=== PATIENT | male | born 1955 | race African-American/Black ===

== ENCOUNTER 2018-05-02 11:02 | Inpatient (IN) | payer MEDICARE, MEDICAID ==
[~2018-05-02] VITALS: Ht 172.7 cm; Wt 87.5 kg
[~2018-05-02 11:02] MED LIST: INSLIS SUBCUT; METF10004 PO
[2018-05-02] MEDS ORDERED: ACETAMINOPHEN 325MG TABLET PO STA (11:14)
[2018-05-02] MEDS ORDERED: SODIUM CHLORIDE 0.9% 1000ML BAG (SEPSIS BOLUS) IV ONE (11:15)
[2018-05-02 11:52] LABS: HEMATOCRIT. 36.3 % (42.0-52.0); HEMOGLOBIN. 12.5 g/dL (14.0-18.0); MEAN CORPUSCULAR HEMOGLOBIN 30.3 pg (28.0-32.0); MEAN PLATELET VOLUME 10.8 fl (7.4-10.4); PLATELET 437 x1000/uL (130-400); RED BLOOD CELL COUNT 4.12 mill/uL (4.7-6.1); RED CELL DISTRIBUTION WIDTH 16.2 % (11.6-14.6)
[2018-05-02 12:09] LABS: CLARITY URINE CLOUDY (CLEAR); COLOR URINE YELLOW (YELLOW); KETONES URINE 4+ (NEGATIVE); LEUKOCYTE ESTERASE URINE NEGATIVE (NEGATIVE); NITRITE URINE NEGATIVE (NEGATIVE); OCCULT BLOOD URINE 2+ (NEGATIVE); PROTEIN URINE 2+ (NEGATIVE); SPECIFIC GRAVITY URINE 1.044 (1.005-1.030)
[2018-05-02 12:47] LABS: CHLORIDE 102 mEq/L (98-107)
[2018-05-02 12:53] LABS: PLATELET ESTIMATE INCREASED
[2018-05-02] MEDS ORDERED: VANCOMYCIN 1 G PREMIX 200 ML IV ONE (13:15)
[2018-05-02] MEDS ORDERED: PIPERACILLIN/TAZ 3.375G PREMIX 50 ML IV ONE (13:15)
[2018-05-02] MEDS ORDERED: ASPIRIN 81MG TABLET PO ONE (13:15)
[2018-05-02] MEDS ORDERED: DEXTROSE 50% WATER 50ML SYRINGE IV PRN (14:15)
[2018-05-02] MEDS ORDERED: CLONIDINE 0.1MG TABLET PO PRN (14:30)
[2018-05-02] MEDS ORDERED: INSULIN GLARGINE UD 100 UNITS/ML SYR SUBCUT NR (16:00)
[2018-05-02] MEDS: BLOOD SUGAR DIAGNOSTIC STRIP TEST SCH ×3 (17:00→20:39)
[2018-05-02 17:36] VITALS: BP 143/65
[2018-05-02] MEDS: INSULIN LISPRO 100 UNITS/ML SUBCUT SCH ×2 (18:41→20:39)
[2018-05-02 20:00] VITALS: BP 145/74
[2018-05-02] MEDS ORDERED: LEVOFLOXACIN 500MG PREMIX 100 ML IV SCH (20:00)
[2018-05-02] MEDS: AMLODIPINE 5MG TABLET PO SCH (20:38)
[2018-05-02] MEDS: ONDANSETRON HCL 4MG/2ML VIAL IV PRN (22:55)
[2018-05-03] VITALS (7 sets, daily range): BP systolic 134–189; BP diastolic 66–87
[2018-05-03] MEDS: ONDANSETRON HCL 4MG/2ML VIAL IV PRN (05:05)
[2018-05-03] MEDS: BLOOD SUGAR DIAGNOSTIC STRIP TEST SCH ×4 (06:56→20:28)
[2018-05-03 07:05] LABS: HEMATOCRIT. 35.9 % (42.0-52.0); HEMOGLOBIN. 11.9 g/dL (14.0-18.0); MEAN CORPUSCULAR HEMOGLOBIN 29.6 pg (28.0-32.0); MEAN CORPUSCULAR VOLUME 89.3 fL (80.0-94.0); MEAN PLATELET VOLUME 10.3 fl (7.4-10.4); PLATELET 229 x1000/uL (130-400); RED BLOOD CELL COUNT 4.02 mill/uL (4.7-6.1)
[2018-05-03] MEDS: AMLODIPINE 5MG TABLET PO SCH ×2 (08:11→21:35)
[2018-05-03] MEDS: INSULIN LISPRO 100 UNITS/ML SUBCUT SCH ×6 (08:12→21:36)
[2018-05-03] MEDS: INSULIN GLARGINE UD 100 UNITS/ML SYR SUBCUT SCH ×2 (10:55→21:36)
[2018-05-03] MEDS: ACETAMINOPHEN 325MG TABLET PO PRN ×2 (15:22→21:40)
[2018-05-03 17:11] LABS: PLATELET ESTIMATE NORMAL
[2018-05-03] MEDS: LEVOFLOXACIN 500MG PREMIX 100 ML IV SCH (23:00)
[2018-05-03 23:23] LABS: *AMPHETAMINES SCREEN URINE NEGATIVE (NEGATIVE); *BARBITURATES SCREEN URINE NEGATIVE (NEGATIVE); *BENZODIAZEPINES SCREEN URINE NEGATIVE (NEGATIVE); *COCAINE SCREEN URINE NEGATIVE (NEGATIVE); METHADONE URINE SCREEN NEGATIVE (NEGATIVE); OPIATES URINE SCREEN NEGATIVE (NEGATIVE)
[2018-05-03 23:24] LABS: CANNABINOID URINE SCREEN NEGATIVE (NEGATIVE); PHENCYCLIDINE URINE SCREEN NEGATIVE (NEGATIVE)
[2018-05-04] VITALS: BP 125/64
[2018-05-04 04:00] VITALS: BP 128/62
[2018-05-04] MEDS: BLOOD SUGAR DIAGNOSTIC STRIP TEST SCH ×4 (05:48→20:58)
[2018-05-04 07:25] LABS: CHLORIDE 97 mEq/L (98-107)
[2018-05-04 07:35] LABS: BASOPHILS % 0.6 % (0.0-2.0); EOSINOPHILS % 0.2 % (0.0-5.0); HEMATOCRIT. 35.3 % (42.0-52.0); HEMOGLOBIN. 11.9 g/dL (14.0-18.0); LYMPHOCYTES % 7.7 % (20.0-50.0); MEAN CORPUSCULAR HEMOGLOBIN 29.6 pg (28.0-32.0); MEAN CORPUSCULAR VOLUME 88.1 fL (80.0-94.0); MEAN PLATELET VOLUME 10.5 fl (7.4-10.4); MONOCYTES % 9.1 % (2.0-8.0); NEUTROPHILS % 82.4 % (40.0-76.0); PLATELET 187 x1000/uL (130-400); RED BLOOD CELL COUNT 4.01 mill/uL (4.7-6.1); RED CELL DISTRIBUTION WIDTH 15.8 % (11.6-14.6)
[2018-05-04 08:00] VITALS: BP 147/68
[2018-05-04] MEDS: INSULIN LISPRO 100 UNITS/ML SUBCUT SCH ×7 (08:20→21:04)
[2018-05-04] MEDS: AMLODIPINE 5MG TABLET PO SCH ×2 (08:24→20:56)
[2018-05-04] MEDS: HYDROCODONE/ACETAMINOPHEN 5/325MG TABLET PO PRN (10:05)
[2018-05-04] MEDS: INSULIN GLARGINE UD 100 UNITS/ML SYR SUBCUT SCH ×2 (10:10→21:04)
[2018-05-04 12:00] VITALS: BP 146/70
[2018-05-04 16:00] VITALS: BP 142/68
[2018-05-04] MEDS: ACETAMINOPHEN 325MG TABLET PO PRN (18:01)
[2018-05-04 20:00] VITALS: BP 134/93
[2018-05-04] MEDS: LEVOFLOXACIN 500MG PREMIX 100 ML IV SCH (21:08)
[2018-05-05] VITALS: BP 138/69
[2018-05-05] MEDS: HYDROCODONE/ACETAMINOPHEN 5/325MG TABLET PO PRN ×2 (01:33→17:25)
[2018-05-05 04:00] VITALS: BP 125/65
[2018-05-05] MEDS: BLOOD SUGAR DIAGNOSTIC STRIP TEST SCH ×3 (05:46→16:44)
[2018-05-05 06:44] LABS: BASOPHILS % 0.5 % (0.0-2.0); EOSINOPHILS % 0.3 % (0.0-5.0); HEMATOCRIT. 33.6 % (42.0-52.0); HEMOGLOBIN. 11.6 g/dL (14.0-18.0); LYMPHOCYTES % 13.6 % (20.0-50.0); MEAN CORPUSCULAR HEMOGLOBIN 29.6 pg (28.0-32.0); MEAN CORPUSCULAR VOLUME 85.8 fL (80.0-94.0); MEAN PLATELET VOLUME 10.3 fl (7.4-10.4); MONOCYTES % 11.3 % (2.0-8.0); NEUTROPHILS % 74.3 % (40.0-76.0); PLATELET 179 x1000/uL (130-400); RED BLOOD CELL COUNT 3.91 mill/uL (4.7-6.1)
[2018-05-05 07:00] LABS: CHLORIDE 93 mEq/L (98-107)
[2018-05-05 08:00] VITALS: BP 148/67
[2018-05-05] MEDS: AMLODIPINE 5MG TABLET PO SCH (08:19)
[2018-05-05] MEDS: ACETAMINOPHEN 325MG TABLET PO PRN (08:19)
[2018-05-05] MEDS: INSULIN LISPRO 100 UNITS/ML SUBCUT SCH ×6 (08:20→17:20)
[2018-05-05] MEDS: INSULIN GLARGINE UD 100 UNITS/ML SYR SUBCUT SCH (09:55)
[2018-05-05 12:00] VITALS: BP 140/66
[2018-05-05] MEDS ORDERED: POTASSIUM CHLORIDE 20MEQ TABLET SR PO NR ×2 (12:30→15:00)
[2018-05-05] MEDS ORDERED: IOHEXOL-300 100 ML BOTTLE ONE (15:33)
[2018-05-05 16:00] VITALS: BP 184/87
[2018-05-05] MEDS ORDERED: LANTUSUD SUBCUT (16:28)
[2018-05-05] MEDS ORDERED: LEVO500T2 MT (16:28)
[2018-05-05 17:26] VITALS: BP 138/74
== END 2018-05-05 20:55 | disposition home or self-care (01) | DRG 871 ==
LOC: ER 12:10 → 7WST 13:59 → ENRESERV 15:22
PROVIDERS: ADMIT Internal Medicine; ATTEND Internal Medicine
DX: A41.59 Other Gram-negative sepsis (principal); E43 Unspecified severe protein-calorie malnutrition; K75.0 Abscess of liver; E87.1 Hypo-osmolality and hyponatremia; N39.0 Urinary tract infection, site not specified; I11.9 Hypertensive heart disease without heart failure; E11.9 Type 2 diabetes mellitus without complications; D64.9 Anemia, unspecified; Z68.29 Body mass index [BMI] 29.0-29.9, adult
CPT/HCPCS: 36415; 71045; 74177; 76770; 80048; 80053; 80305; 81003; 82962; 83605; 84484; 85025; 87040; 87077; 87086; 87186; 93005; 93970; 96365; 96367; 99291; J1815; J1956; J2405; J2543; J3370; J7030; J7050; Q9967

== ENCOUNTER 2018-06-04 10:18 | Emergency (ER) | payer OTHER, MEDICAID ==
[~2018-06-04] VITALS: Ht 175.3 cm; Wt 88.0 kg
[~2018-06-04 10:18] MED LIST changes: +LANTUSUD SUBCUT; +LEVO500T2 MT
[2018-06-04 12:42] LABS: BASOPHILS % 0.7 % (0.0-2.0); EOSINOPHILS % 0.5 % (0.0-5.0); HEMATOCRIT. 39.5 % (42.0-52.0); HEMOGLOBIN. 13.1 g/dL (14.0-18.0); LYMPHOCYTES % 17.4 % (20.0-50.0); MEAN CORPUSCULAR HEMOGLOBIN 29.4 pg (28.0-32.0); MEAN CORPUSCULAR VOLUME 88.6 fL (80.0-94.0); MEAN PLATELET VOLUME 9.4 fl (7.4-10.4); MONOCYTES % 5.5 % (2.0-8.0); NEUTROPHILS % 75.9 % (40.0-76.0); PLATELET 212 x1000/uL (130-400); RED BLOOD CELL COUNT 4.46 mill/uL (4.7-6.1); RED CELL DISTRIBUTION WIDTH 16.7 % (11.6-14.6)
[2018-06-04 12:49] LABS: CHLORIDE 96 mEq/L (98-107)
[2018-06-04 13:22] LABS: COLOR URINE YELLOW (YELLOW); KETONES URINE 1+ (NEGATIVE); LEUKOCYTE ESTERASE URINE NEGATIVE (NEGATIVE); NITRITE URINE POSITIVE (NEGATIVE); OCCULT BLOOD URINE TRACE (NEGATIVE); PROTEIN URINE 1+ (NEGATIVE); SPECIFIC GRAVITY URINE 1.035 (1.005-1.030)
[2018-06-04 13:26] LABS: CLARITY URINE HAZY (CLEAR)
[2018-06-04] MEDS ORDERED: SODIUM CHLORIDE 0.9% 1,000 ML IV ONE (14:42)
[2018-06-04] MEDS ORDERED: CEFTRIAXONE 1 G PREMIX 50 ML IV ONE (14:45)
[2018-06-04] MEDS ORDERED: ACETAMINOPHEN 650MG/20.3ML UDC PO ONE (15:45)
[2018-06-04 18:59] VITALS: BP 123/65
== END 2018-06-04 18:55 | disposition home or self-care (01) ==
LOC: ER 10:18
DX: N41.9 Inflammatory disease of prostate, unspecified (principal); R03.0 Elevated blood-pressure reading, without diagnosis of hypertension; R00.0 Tachycardia, unspecified; E11.9 Type 2 diabetes mellitus without complications; K76.0 Fatty (change of) liver, not elsewhere classified
CPT/HCPCS: 36415; 71045; 74176; 80053; 81003; 82962; 83690; 84484; 85025; 87077; 87086; 87186; 93005; 96365; 99285; J0696; J7030

== ENCOUNTER 2018-09-24 15:00 | Emergency (ER) | payer OTHER, MEDICAID ==
[~2018-09-24] VITALS: Ht 175.3 cm; Wt 97.0 kg
[~2018-09-24 15:00] MED LIST changes: -LEVO500T2 MT; +METF-416 PO; -METF10004 PO
[2018-09-24 20:40] LABS: CLARITY URINE TURBID (CLEAR); COLOR URINE YELLOW (YELLOW); KETONES URINE NEGATIVE (NEGATIVE); LEUKOCYTE ESTERASE URINE 2+ (NEGATIVE); NITRITE URINE NEGATIVE (NEGATIVE); OCCULT BLOOD URINE 2+ (NEGATIVE); PH URINE 5.5 (4.5-8.0); PROTEIN URINE 1+ (NEGATIVE); SPECIFIC GRAVITY URINE 1.023 (1.005-1.030); UROBILINOGEN URINE 0.2 E.U./dL (0.2-1.0)
[2018-09-24 21:39] VITALS: BP 156/67
== END 2018-09-24 21:40 | disposition home or self-care (01) ==
LOC: ER 17:51
DX: N30.00 Acute cystitis without hematuria (principal); R31.9 Hematuria, unspecified; E11.9 Type 2 diabetes mellitus without complications; Z79.4 Long term (current) use of insulin; Z90.49 Acquired absence of other specified parts of digestive tract
CPT/HCPCS: 87077; 87186; 99283

== ENCOUNTER 2019-07-04 08:03 | Emergency (ER) | payer MEDICARE, MEDICAID ==
[~2019-07-04] VITALS: Ht 167.6 cm; Wt 106.0 kg
[2019-07-04] MEDS ORDERED: KETOROLAC 30MG/ML VIAL IV STA (08:53)
[2019-07-04 09:30] LABS: BASOPHILS % 0.7 % (0.0-2.0); EOSINOPHILS % 3.7 % (0.0-5.0); HEMATOCRIT. 44.1 % (42.0-52.0); HEMOGLOBIN. 15.2 g/dL (14.0-18.0); LYMPHOCYTES % 57.4 % (20.0-50.0); MEAN CORPUSCULAR HEMOGLOBIN 31.7 pg (28.0-32.0); MEAN CORPUSCULAR VOLUME 92.4 fL (80.0-94.0); MEAN PLATELET VOLUME 10.7 fl (7.4-10.4); MONOCYTES % 7.5 % (2.0-8.0); NEUTROPHILS % 30.7 % (40.0-76.0); PLATELET 150 x1000/uL (130-400); RED BLOOD CELL COUNT 4.77 mill/uL (4.7-6.1); RED CELL DISTRIBUTION WIDTH 13.7 % (11.6-14.6)
[2019-07-04 09:36] LABS: CHLORIDE 106 mEq/L (98-107)
[2019-07-04 09:38] LABS: PROTHROMBIN TIME 9.9 sec (9.6-11.0)
[2019-07-04 10:15] LABS: CLARITY URINE CLEAR (CLEAR); COLOR URINE YELLOW (YELLOW); KETONES URINE TRACE (NEGATIVE); LEUKOCYTE ESTERASE URINE NEGATIVE (NEGATIVE); NITRITE URINE NEGATIVE (NEGATIVE); OCCULT BLOOD URINE NEGATIVE (NEGATIVE); PROTEIN URINE 1+ (NEGATIVE); SPECIFIC GRAVITY URINE 1.025 (1.005-1.030); UROBILINOGEN URINE 0.2 E.U./dL (0.2-1.0)
[2019-07-04 10:57] VITALS: BP 132/78
== END 2019-07-04 10:58 | disposition home or self-care (01) ==
LOC: ER 08:03
DX: R10.9 Unspecified abdominal pain (principal); R11.2 Nausea with vomiting, unspecified; E78.00 Pure hypercholesterolemia, unspecified; E11.9 Type 2 diabetes mellitus without complications; Z79.899 Other long term (current) drug therapy; Z79.4 Long term (current) use of insulin; Z90.49 Acquired absence of other specified parts of digestive tract
CPT/HCPCS: 36415; 74176; 80053; 81003; 83690; 85025; 85610; 96374; 99284; J1885

== ENCOUNTER 2022-02-19 11:55 | Emergency (ER) | payer BC, MEDICAID ==
[~2022-02-19] VITALS: Ht 172.7 cm; Wt 106.0 kg
[2022-02-19 12:24] LABS: BASOPHILS % 1.1 % (0.0-2.0); HEMATOCRIT. 45.4 % (42.0-52.0); HEMOGLOBIN. 15.8 g/dL (14.0-18.0); LYMPHOCYTES % 45.4 % (20.0-50.0); MEAN CORPUSCULAR HEMOGLOBIN 31.4 pg (28.0-32.0); MEAN CORPUSCULAR VOLUME 90.2 fL (80.0-94.0); MEAN PLATELET VOLUME 10.6 fl (7.4-10.4); NEUTROPHILS % 41.5 % (40.0-76.0); PLATELET 157 x1000/uL (130-400); RED BLOOD CELL COUNT 5.03 mill/uL (4.7-6.1)
[2022-02-19 12:33] LABS: CHLORIDE 104 mEq/L (98-107)
[2022-02-19] MEDS ORDERED: IBUP-2028 MT (15:49)
[2022-02-19] MEDS ORDERED: ACYC200C31 PO (15:49)
[2022-02-19] MEDS ORDERED: LIDO700A30 TP (15:49)
[2022-02-19 16:40] VITALS: BP 160/70
== END 2022-02-19 17:10 | disposition home or self-care (01) ==
LOC: ER 11:55
DX: R07.9 Chest pain, unspecified (principal); B02.9 Zoster without complications; E11.9 Type 2 diabetes mellitus without complications; I10 Essential (primary) hypertension; Z79.4 Long term (current) use of insulin; Z90.49 Acquired absence of other specified parts of digestive tract
CPT/HCPCS: 36415; 71045; 80053; 82962; 83880; 84484; 85025; 93005; 99285

== ENCOUNTER 2023-03-09 11:43 | Emergency (ER) | payer BC, MEDICAID ==
[~2023-03-09] VITALS: Ht 182.9 cm; Wt 103.0 kg
[~2023-03-09 11:43] MED LIST changes: +ACYC200C31 PO; +IBUP-2028 MT; +LIDO700A30 TP
[2023-03-09] MEDS ORDERED: LIDOCAINE 5% PATCH TOP ONE (13:30)
[2023-03-09] MEDS ORDERED: ACET-2708 MT (15:02)
[2023-03-09 15:55] VITALS: BP 142/94
== END 2023-03-09 15:57 | disposition home or self-care (01) ==
LOC: ER 11:43
DX: M13.851 Other specified arthritis, right hip (principal); M25.561 Pain in right knee; E11.9 Type 2 diabetes mellitus without complications; I10 Essential (primary) hypertension; Z90.89 Acquired absence of other organs
CPT/HCPCS: 73502; 73560; 93971; 99284

== ENCOUNTER 2023-06-28 12:45 | Emergency (ER) | payer BC, MEDICAID ==
[~2023-06-28] VITALS: Ht 170.2 cm; Wt 96.0 kg
[~2023-06-28 12:45] MED LIST changes: +ACET-2708 MT
[2023-06-28 13:17] VITALS: BP 162/75; PULSE 72; RESP 18; TEMP 98.9; O2SAT 99
[2023-06-28 13:53] LABS: CHLORIDE 110 mEq/L (98-107); INDEX HEMOLYSI 2 (1-3); INDEX ICTERIC 1 (1-4); INDEX LIPEMIC 1 (1-3); POTASSIUM 3.8 mEq/L (3.5-5.1); SODIUM 139 mEq/L (136-145)
[2023-06-28 13:54] LABS: BASOPHILS % 1.2 % (0.0-2.0); EOSINOPHILS % 3.7 % (0.0-5.0); HEMATOCRIT. 41.2 % (42.0-52.0); LYMPHOCYTES % 45.7 % (20.0-50.0); MEAN CORPUSCULAR HEMOGLOBIN 30.9 pg (28.0-32.0); MEAN CORPUSCULAR VOLUME 90.8 fL (80.0-94.0); MEAN PLATELET VOLUME 10.4 fl (7.4-10.4); MONOCYTES % 7.1 % (2.0-8.0); NEUTROPHILS % 42.3 % (40.0-76.0); PLATELET 173 x1000/uL (130-400); RED BLOOD CELL COUNT 4.53 mill/uL (4.7-6.1); RED CELL DISTRIBUTION WIDTH 14.5 % (11.6-14.6); WHITE BLOOD COUNT 6.6 x1000/uL (4.5-11.0)
[2023-06-28 14:03] LABS: ALANINE AMINOTRANSFERASE 24 IU/L (13-61); ALBUMIN 3.1 g/dL (3.4-5.0); ASPARTATE AMINOTRANSFERASE 15 IU/L (15-37); BILIRUBIN TOTAL 0.6 mg/dL (0.1-1.0); CALCIUM 8.4 mg/dL (8.5-10.1); CARBON DIOXIDE 27 mEq/L (21-32); CREATININE 1.1 mg/dL (0.6-1.3); GLUCOSE 256 mg/dL (70-105); PROTEIN TOTAL 6.4 g/dL (6.0-8.3); UREA NITROGEN BLOOD 19 mg/dL (7-21)
[2023-06-28 18:07] LABS: CLARITY URINE CLEAR (CLEAR); COLOR URINE YELLOW (YELLOW); GLUCOSE URINE 3+ (NEGATIVE); KETONES URINE TRACE (NEGATIVE); LEUKOCYTE ESTERASE URINE NEGATIVE (NEGATIVE); NITRITE URINE NEGATIVE (NEGATIVE); OCCULT BLOOD URINE NEGATIVE (NEGATIVE); PROTEIN URINE 4+ (NEGATIVE); UROBILINOGEN URINE 0.2 E.U./dL (0.2-1.0)
[2023-06-28 18:09] LABS: RBC URINE 0-2 /hpf (0-2); WBC URINE 0-2 /hpf (0-2); YEAST URINE NONE SEEN
[2023-06-28] MEDS ORDERED: IOHEXOL-300 100 ML BOTTLE ONE (18:35)
[2023-06-28 19:10] LABS: BACTERIA URINE 1+; SQUAMOUS EPITHELIAL CELL URINE FEW /lpf (RARE/1+)
[2023-06-28] MEDS ORDERED: NAP5EC MT (19:38)
== END 2023-06-28 20:48 | disposition home or self-care (01) ==
LOC: ER 12:45
DX: R10.32 Left lower quadrant pain (principal); K80.20 Calculus of gallbladder without cholecystitis without obstruction; E11.9 Type 2 diabetes mellitus without complications; I10 Essential (primary) hypertension; Z90.49 Acquired absence of other specified parts of digestive tract
CPT/HCPCS: 99285; 74178; 80053; 81003; 85025; 36415; Q9967